=== PATIENT | female | born 1950 | race Caucasian/White ===

== ENCOUNTER → 2017-01-16 | Outpatient (CLI) | payer MEDICARE, BC ==
--- NOTE | 2017-01-16 14:01 | RADIOLOGY REPORT (SQ) ---
EXAM DESCRIPTION: LUMBAR SPINE COMPLETE COMPLETED DATE/TIME: 01/16/2017 12:50 pm REASON FOR STUDY: HYPOTHYROIDISM, UNSPECIFIED E03.9 HYPOTHYROIDISM, UNSPECIFIED COMPARISON: None. NUMBER OF VIEWS: Five views including obliques. TECHNIQUE: AP, lateral, oblique, and sacral radiographic images acquired of the lumbar spine. LIMITATIONS: None. FINDINGS: MINERALIZATION: Normal. SEGMENTATION: Normal. No transitional anatomy. ALIGNMENT: Normal. VERTEBRAE: Maintained height. No fracture or worrisome bone lesion. DISCS: Disc space narrowing with osteophytes. POSTERIOR ELEMENTS: Pedicles and facets are intact. No pars defect or posterior arch defects. HARDWARE: None in the spine. PARASPINAL SOFT TISSUES: Normal. PELVIS: Intact as visualized. No fractures or worrisome bone lesions. SI joints intact. OTHER: No other significant finding. IMPRESSION: DEGENERATIVE DISC DISEASE. NO ACUTE FINDINGS. TECHNICAL DOCUMENTATION: JOB ID: [id number]- All Rights Reserved
== END ==
LOC: OD 12:21
PROVIDERS: ATTEND Family Medicine
DX: E03.9 Hypothyroidism, unspecified (principal)
CPT/HCPCS: 72110

== ENCOUNTER → 2017-01-31 | Outpatient (CLI) | payer MEDICARE, BC ==
--- NOTE | 2017-01-31 13:58 | RADIOLOGY REPORT (SQ) ---
EXAM DESCRIPTION: MRI LUMBAR SPINE WITHOUT COMPLETED DATE/TIME: 01/31/2017 11:37 am REASON FOR STUDY: LOW BACK PAIN M54.5 LOW BACK PAIN COMPARISON: Lumbar spine plain films 01/16/2017 TECHNIQUE: Sagittal and Axial imaging includes T1, T2, STIR and gradient echo sequences. Coronal T2/ HASTE imaging. LIMITATIONS: None. FINDINGS: VISUALIZED UPPER ABDOMEN: Limited evaluation. No acute or suspicious findings suggested. SEGMENTATION: There is transitional anatomy. A small disc space is present at L5-S1 with a large rig ht transverse process fused with the upper sacrum. This puts a small disc space at L5-S1 and at well -developed disc space at L4-5. ALIGNMENT: Minimal anterolisthesis of L3 over L4 related to facet arthropathy VERTEBRAE: Intact. BONE MARROW: Normal. No marrow replacement or reactive changes. DISC SIGNAL: Diffuse decreased T2 weighted intervertebral disc signal. High-grade disc space loss of height at T11-12, L1-2. POSTERIOR ELEMENTS: Generally intact. No pars defect evident. HARDWARE: None in the spine. CORD AND CONUS: Normal in size and signal intensity. Conus at the mid L1 level. SOFT TISSUES: No aortic aneurysm seen. No bulky retroperitoneal adenopathy or mass. No paraspinal mas s or fluid. T11-12: At the upper edge of the field of view. Mild diffuse posterior disc bulging is present with bilateral facet arthropathy causing borderline central canal narrowing. Mild bilateral inferior for aminal narrowing without exiting nerve root impingement. T12-L1: Broad diffuse posterior disc bulging is present right greater than left. There is moderate bilateral facet and ligament hypertrophy. Borderline central canal narrowing. Mild bilateral inferi or foraminal narrowing without exiting nerve root impingement. L1-L2: Moderate to high-grade central canal stenosis results from broad diffuse posterior disc bulge with a small right paracentral protrusion. Moderate bilateral facet and ligament hypertrophy. Asymm etric flattening of the thecal sac along the right lateral recess containing the proximal L2 nerve ro ot on axial T2 image 13. There is moderate to high-grade right and moderate left foraminal narrowing without definite exiting L1 nerve root impingement. L2-L3: High-grade central canal stenosis results from broad diffuse posterior disc bulging with a ros tral and left paracentral protrusion/herniation, along with bulky bilateral facet and ligament hypert rophy. There is effacement of the CSF around the lumbar nerve roots and flattening of the thecal sac left greater than right, best shown on axial T2 image 19. Mild bilateral foraminal narrowing is pre sent without exiting L2 nerve root impingement. L3-L4: Minimal anterolisthesis of L3 over L4, broad diffuse disc bulge and bulky bilateral facet and ligament hypertrophy combine to cause high-grade central canal stenosis. There is mild bilateral inf erior foraminal narrowing without exiting L3 nerve root impingement. L4-L5: Broad diffuse posterior disc bulge and bony spurring and moderate bilateral facet and ligament hypertrophy cause mild central canal narrowing with flattening of the thecal sac into a triangular s hape. There is mild to moderate bilateral inferior foraminal narrowing without exiting L4 nerve root impingement. L5-S1: Small disc space. No central or foraminal stenosis SACRUM: Visualized upper sacrum intact. OTHER: No other significant findings. IMPRESSION: Multilevel significant central canal stenosis most pronounced at L2-3 and L3-4 TECHNICAL DOCUMENTATION: JOB ID: [id number] [employer]- All Rights Reserved
== END ==
LOC: RAD 10:29
PROVIDERS: ATTEND Family Medicine
DX: M54.5 Low back pain (principal); M48.06 Spinal stenosis, lumbar region
CPT/HCPCS: 72148

== ENCOUNTER → 2017-11-14 | Outpatient (CLI) | payer MEDICARE, BC ==
--- NOTE | 2017-11-14 16:23 | RADIOLOGY REPORT (SQ) ---
EXAM DESCRIPTION: CHEST PA/LATERAL COMPLETED DATE/TIME: 11/14/2017 3:56 pm REASON FOR STUDY: COUGH COMPARISON: [address] chest. TECHNIQUE: Frontal and lateral radiographic views of the chest acquired. NUMBER OF VIEWS: Two view. LIMITATIONS: None. FINDINGS: LUNGS AND PLEURA: Suspect mild basilar scarring. No acute infiltrate or suspicious opacit y detected. MEDIASTINUM AND HILAR STRUCTURES: Postoperative changes are now noted. Surgical clips in the anterio r chest wall with 1 intact sternal wire. Status post aortic valve replacement. No contour abnormali ties. HEART AND VASCULAR STRUCTURES: Heart normal size. No evidence for failure. BONES: Osteopenic. HARDWARE: None in the chest. OTHER: No other significant finding. IMPRESSION: Postoperative changes. No acute or suspicious thoracic abnormality. TECHNICAL DOCUMENTATION: JOB ID: [id number] [employer]- All Rights Reserved Reading location - IP/workstation name: [email or web address]
== END ==
LOC: OD 15:24
PROVIDERS: ATTEND Family Medicine
DX: R05 Cough (principal)
CPT/HCPCS: 71046

== ENCOUNTER → 2020-03-16 | Outpatient (CLI) | payer MEDICARE, BC ==
--- NOTE | 2020-03-16 12:26 | RADIOLOGY REPORT (SQ) ---
EXAM DESCRIPTION: FOOT RIGHT COMPLETE IMAGES COMPLETED DATE/TIME: 03/16/2020 11:05 am REASON FOR STUDY: RT FOOT PAIN M79.671 PAIN IN RIGHT FOOT COMPARISON: None. NUMBER OF VIEWS: Three views. TECHNIQUE: AP, lateral and oblique radiographic images acquired of the right foot. LIMITATIONS: None. FINDINGS: MINERALIZATION: Normal. BONES: No acute fracture or dislocation. No worrisome bone lesions. JOINTS: Degenerative joint changes are seen at the 1st metatarsal-phalangeal joint. SOFT TISSUES: No soft tissue swelling. No foreign body. OTHER: No other significant finding. IMPRESSION: Degenerative joint disease at the 1st metatarsal-phalangeal joint. TECHNICAL DOCUMENTATION: JOB ID: [id number] 2010 [employer]- All Rights Reserved Reading location - IP/workstation name: [email or web address]
== END ==
LOC: OD 10:43
PROVIDERS: ATTEND Family Medicine
DX: M79.671 Pain in right foot (principal)

== ENCOUNTER → 2020-07-19 | Outpatient (CLI) | payer MEDICARE, BC ==
--- NOTE | 2020-07-19 16:45 | WOMENS IMAGING REPORT ---
EXAM DESCRIPTION: 3D SCREENING MAMMO BILAT IMAGES COMPLETED DATE/TIME: 07/19/2020 1:41 pm REASON FOR STUDY: Z12.31 ENCNTR SCREEN MAMMOGRAM FOR MALIGNANT NEOPLASM OF BREAST Z12.31 ENCNTR SCR EEN MAMMOGRAM FOR MALIGNANT NEOPLASM OF [place] COMPARISON: None. EXAM PARAMETERS: Views: Standard craniocaudal and mediolateral oblique views of each breast recorded using digital acquisition and breast tomosynthesis. Read with the assistance of CAD. .[facility] Version 9.2 LIMITATIONS: None. FINDINGS: No suspicious masses, suspicious calcifications or architectural distortion. No areas of c oncern. IMPRESSION: NEGATIVE MAMMOGRAM. BIRADS 1. BREAST DENSITY: b. There are scattered areas of fibroglandular density. BIRAD: ASSESSMENT: 1 NEGATIVE RECOMMENDATION: ROUTINE SCREENING COMMENT: The patient has been notified of the results by letter per MQSA requirements. Additional no tification policies are in place for contacting patient with suspicious or incomplete findings. Quality ID #[id number]: The [employer] recommends an annual screening mammogram for women aged 40 years or over. This facility utilizes a reminder system to ensure that all patients receive reminder letters, and/or direct phone calls for appointments. This includes reminders for routine scr eening mammograms, diagnostic mammograms, or other Breast Imaging Interventions when appropriate. Th is patient will be placed in the appropriate reminder system. TECHNICAL DOCUMENTATION: FINDING NUMBER: (1) ASSESSMENT: (1) JOB ID: [id number] 2010 [employer]- All Rights Reserved Reading location - IP/workstation name: [id number]
== END ==
LOC: WI 13:17
PROVIDERS: ATTEND Family Medicine
DX: Z12.31 Encounter for screening mammogram for malignant neoplasm of breast (principal)
CPT/HCPCS: 77063; 77067